=== PATIENT | female | born 1965 | race Caucasian/White ===

== ENCOUNTER 2018-01-09 09:52 | Emergency (ER) | payer BC ==
[2018-01-09 10:38] VITALS: BP 155/88
--- NOTE | 2018-01-09 11:04 | UC ---
Breast Complaint - HPI Summary HPI Summary: pt noted "a pea size lump" to her L upper breast about 8 months ago. it is now larger and feels attached to her chest. it is tender. hx breast cysts with negative biopsy by Dr Dunn. pt does breast exams and notes " just a cyst on the L side". - History of Current Complaint Hx Obtained From: Patient Timing: Constant Breast Associated Signs/Symptoms: Other: - + red but no fever or discharge Breast Related History: Fibrocystic Breast Disease - Allergy/Home Medications Allergies/Adverse Reactions: Allergies Allergy/AdvReac Type Severity Reaction Status Date / Time latex Allergy Rash/ONLY Verified 01/09/18 10:31 IF PT WEARS GLOVES Home Medications: Home Medications amLODIPine/Benazepril 03/03(NF [Lotrel 03/03(NF)] 0.5 tab PO DAILY 01/09/18 [ History Confirmed 01/09/18] PMH/Surg Hx/FS Hx/Imm Hx - Additional Past Medical History Additional PMH: Breast cysts with neg biopsy, r/o sz disorder(seeing neurology in [place]) Cardiovascular History: Hypertension - Surgical History Surgical History: Yes Surgery Procedure, Year, and Place: BILATERAL BREAST BIOPSIES X5. GALLBLADDER 2007. HYSTERECTOMY 2013 - Family History Known Family History: Positive: Unknown - Social History Occupation: Employed Full-time Lives: With Family Alcohol Use: Occasionally Substance Use Type: None Smoking Status (MU): Former Smoker Type: Cigarettes When Did the Patient Quit Smoking/Using Tobacco: 2005 Household Exposure Type: Cigarettes Review of Systems Constitutional: Negative Skin: Other - swellling L upper innner breat that is red. Eyes: Negative ENT: Negative Respiratory: Negative Cardiovascular: Negative Gastrointestinal: Negative Genitourinary: Negative Motor: Negative Neurovascular: Negative Musculoskeletal: Negative Neurological: Negative Psychological: Negative Is Patient Immunocompromised?: No All Other Systems Reviewed And Are Negative: Yes Physical Exam Triage Information Reviewed: Yes Appearance: Well-Appearing Vital Signs: Initial Vital Signs Temp 100.2 F 01/09/18 10:33 Pulse 78 01/09/18 10:33 Resp 17 01/09/18 10:33 BP 155/88 01/09/18 10:33 Pulse Ox 99 01/09/18 10:33 Vital Signs Reviewed: Yes Eyes: Positive: Conjunctiva Clear ENT: Positive: Normal ENT inspection Neck: Positive: Supple, Nontender, No Lymphadenopathy Respiratory: Positive: Lungs clear, Normal breath sounds Cardiovascular: Positive: RRR, No Murmur Abdomen Description: Positive: Nontender, No Organomegaly, Soft Bowel Sounds: Positive: Present Musculoskeletal: Positive: ROM Intact Neurological: Positive: Alert Psychological: Positive: Age Appropriate Behavior Skin Exam: Normal Skin: Positive: Other - Breast exam: Junction of the left upper medial breast and chest wall has a 2-2.5 area of erythema that is indurated and not mobile. Patient notes the area is tender to palpation; however, it is not fluctuant. Additional breast exam reveals a cystic type lesion to the left anterior breast approximately 3 cm that is not fluctuant and nontender. No discharge or additional lesions appreciated. There is no supra or infraclavicular, axillary or epitrochlear adenopathy. Breast Pain Course/Dx - Course Course Of Treatment: Patient has history of fibrocystic breast disease with previous biopsies being negative by Dr. Dunn. The area of concern began as size of a pea 8 months ago and has been enlarging. It is not fluctuant and is question with fixed to the chest wall. This requires additional evaluation by a surgeon as soon as possible to exclude cancerous type pathology. Had this discussion with the patient including need for close follow-up and is strongly encouraged to make that follow-up appointment today. Patient agrees to this plan. I did attempt to call her surgeon Dr. Dunn during her stay but only got a recording [place] leave my name and number. As a result, a gave the patient referral to [facility] surgery Dr. Hamlin. Patient is going to drive to the office of Dr. Dunn today to see if she can make an immediate follow- up appointment if she is unable to do so she is then going to call the office of Dr. Hamlin today for follow-up appointment. I also gave her the number of the physician referral lies on through [facility] to help her set up an appointment. - Diagnoses Provider Diagnoses: Breast mass Discharge - Sign-Out/Discharge Documenting (check all that apply): Patient Departure All imaging exams completed and their final reports reviewed: No Studies - Discharge Plan Condition: Stable Disposition: HOME Patient Education Materials: Breast Mass (ED) Referrals: Marbella Hamlin MD [Medical Doctor] - As Soon As Possible [facility]] - 1 Day - Billing Disposition and Condition Condition: STABLE Disposition: Home
== END 2018-01-09 11:16 | disposition home or self-care (01) ==
LOC: UCCORT 09:52
DX: N63.20 Unspecified lump in the left breast, unspecified quadrant (principal); I10 Essential (primary) hypertension; Z91.040 Latex allergy status; Z87.891 Personal history of nicotine dependence
CPT/HCPCS: 99211; G0463